=== PATIENT | female | born 1960 | race Caucasian/White ===

== ENCOUNTER 2016-12-20 10:27 | Emergency (ER) | payer OTHER ==
[~2016-12-20] VITALS: Ht 154.9 cm; Wt 44.1 kg
[2016-12-20 11:40] LABS: HEMATOCRIT 40.8 % (36.0-46.0); MCH 29.3 PG (29.0-34.0); MCHC 32.8 G/DL (30.0-36.0); MCV 89.3 FL (83-99); RBC DIS.WIDTH-CV 13.1 % (11.8-14.6); RBC DIS.WIDTH-SD 42.9 % (39-53); RED BLOOD COUNT 4.57 M/uL (3.80-5.20); WHITE BLOOD COUNT 9.5 K/uL (4.1-10.2)
[2016-12-20 11:49] LABS: CHLORIDE 111 mEq/L (99-109); POTASSIUM 4.3 mEq/L (3.7-5.4); SODIUM 141 mEq/L (136-147)
[2016-12-20 11:51] LABS: GLUCOSE 82 mg/dL (70-99)
[2016-12-20 11:52] LABS: ANION GAP 9 MEQ/L (2-14)
[2016-12-20 11:55] LABS: GFR ESTIMATE (CALCULATED) > 59 mL/min/
[2016-12-20 11:56] LABS: UREA NITROGEN (BUN) 10 mg/dL (9-23)
[2016-12-20 12:02] LABS: TROP-I INTERPRETATION NEGATIVE; TROPONIN-I < 0.01 ng/mL (0.0-0.30)
[2016-12-20 12:42] LABS: MEAN PLAT.VOLUME 10.9 uM^3 (9.5-12.4); PLAT.SUFFICIENCY ADEQUATE; PLATELET COUNT 213 K/uL (156-360)
[2016-12-20] MEDS ORDERED: AZITHROMYCIN250 MG1 PO (13:06)
[2016-12-20] MEDS ORDERED: PREDNISONE50 MG PO (13:07)
[2016-12-20 14:10] VITALS: BP 116/69
== END 2016-12-20 14:31 | disposition home or self-care (01) ==
LOC: EME 10:27
DX: J44.1 Chronic obstructive pulmonary disease with (acute) exacerbation (principal); F17.200 Nicotine dependence, unspecified, uncomplicated; Z88.0 Allergy status to penicillin; Z88.1 Allergy status to other antibiotic agents
CPT/HCPCS: 71020; 80048; 84484; 85027; 93005; 94640; 99281; 99284; J0456; J2930